=== PATIENT | male | born 1960 | race Caucasian/White ===

== ENCOUNTER 2021-01-18 04:26 | Observation (INO) ==
[2021-01-18] MEDS ORDERED: Naloxone 0.4 MG/ML INJ IVP PRN (10:41)
[2021-01-18] MEDS ORDERED: *HR* HYDROcodone/Acet 5/325 mg TABLET PO PRN (10:46)
[2021-01-18] MEDS ORDERED: Ondansetron 4 MG/2 ML VIAL IVP PRN (10:46)
[2021-01-18] MEDS ORDERED: *HR* LORazepam 2 MG/ML VIAL IVP PRN ×3 (10:50→10:51)
[2021-01-18 11:42] LABS: Hematocrit 49.3 % (37.5-50.1); Hemoglobin 16.4 g/dL (12.9-16.9); Mean Corpuscular HGB Conc 33.3 g/dL (31.6-35.5); Mean Corpuscular Hemoglobin 32.7 pg (28.0-33.3); Mean Corpuscular Volume 98.2 fL (83.0-100.0); Platelet Count 226 K/mcL (140-400); Red Blood Count 5.02 M/mcL (4.19-5.50); Red Cell Distribution Width 13.9 % (11.5-14.5); White Blood Count 11.2 K/mcL (4.3-11.1)
[2021-01-18 11:57] LABS: Prothrombin Time 11.2 Seconds (9.4-12.1)
[2021-01-18 11:59] LABS: Activated Partial Thrombo Time 26.8 Seconds (26.0-36.0)
[2021-01-18 12:04] LABS: Alanine Aminotransferase 36 Units/L (7-52); Albumin 3.7 g/dL (3.5-5.7); Albumin/Globulin Ratio 1.4 (1.1-2.2); Alkaline Phosphatase 95 Units/L (34-104); Amylase 16 Units/L (29-103); Aspartate Amino Transferase 47 Units/L (13-39); BUN/Creatinine Ratio 8 (6-26); Bilirubin,Total 0.7 mg/dL (0.3-1.0); Blood Urea Nitrogen 6 mg/dL (8-23); Calcium 8.7 mg/dL (8.6-10.3); Carbon Dioxide 28 mEq/L (23-29); Chloride 105 mEq/L (98-107); Globulin 2.6 g/dL (2.4-3.5); Glucose 107 mg/dL (70-105); Lipase 6 Units/L (11-82); Magnesium 1.8 mg/dL (1.6-2.6); Osmolality,Calculated 286 (280-300); Phosphorous 3.4 mg/dL (2.7-4.5); Potassium 4.5 mEq/L (3.5-5.1); Sodium 139 mEq/L (136-145); Total Protein 6.3 g/dL (6.4-8.9); Troponin I < 0.03 ng/mL (< 0.04); eGFR For African Americans > 60 (> 60); eGFR For Non-African Americans > 60 (> 60)
[2021-01-18] MEDS: D5% in 0.45% NACL 1,000 ML IVC SCH ×2 (12:13→23:55)
[2021-01-18] MEDS: Pantoprazole 40 MG VIAL IVP SCH (12:14)
[2021-01-18] MEDS ORDERED: Ipratropium/Albuterol Neb 3 ML IH PRN (13:16)
[2021-01-18] MEDS: *HR* Heparin 5,000 UNIT/ML VIAL SQ SCH (17:56)
[2021-01-19] MEDS ORDERED: lisinopriL 20 MG TABLET PO SCH (05:45)
[2021-01-19] MEDS: *HR* Heparin 5,000 UNIT/ML VIAL SQ SCH (05:57)
[2021-01-19 07:27] VITALS: BP 169/91
[2021-01-19] MEDS ORDERED: Folic Acid 1 MG TABLET PO SCH (09:00)
[2021-01-19] MEDS ORDERED: Vitamin B Complex/Vit C/Vit E 1 EACH TABLET PO SCH (09:00)
[2021-01-19] MEDS ORDERED: Thiamine (B-1) 100 MG TABLET PO SCH (09:00)
[2021-01-19] MEDS: Pantoprazole 40 MG VIAL IVP SCH (09:15)
== END 2021-01-19 11:48 | disposition home or self-care (01) ==
LOC: 3ANU
PROVIDERS: ADMIT Internal Medicine; ATTEND Internal Medicine

== ENCOUNTER 2021-10-27 12:31 | Observation (INO) ==
[2021-10-27] MEDS ORDERED: Naloxone 0.4 MG/ML INJ IVP PRN (15:40)
[2021-10-27] MEDS ORDERED: *HR* OxyCODONE Immed Rel 5 MG TABLET PO PRN ×2 (15:44)
[2021-10-27] MEDS ORDERED: Morphine Sulfate 2 MG/ML SYRINGE IVP PRN (15:44)
[2021-10-27] MEDS ORDERED: Acetaminophen 325 MG TABLET PO PRN (15:44)
[2021-10-27 17:32] LABS: Basophils % 0.5 %; Eosinophils # 0.1 K/mcL (0.0-0.6); Eosinophils % 0.8 %; Hematocrit 44.1 % (37.5-50.1); Hemoglobin 14.8 g/dL (12.9-16.9); Immature Granulocytes % 0.6 % (0-4); Lymphocytes # 1.6 K/mcL (0.6-4.6); Lymphocytes % 19.9 %; Mean Corpuscular HGB Conc 33.6 g/dL (31.6-35.5); Mean Corpuscular Volume 98.4 fL (83.0-100.0); Mean Platelet Volume 8.4 fL (9.4-12.4); Monocytes # 1.1 K/mcL (0.0-1.3); Monocytes % 13.7 %; Neutrophils # 5.1 K/mcL (1.6-8.9); Platelet Count 295 K/mcL (140-400); Red Blood Count 4.48 M/mcL (4.19-5.50); Red Cell Distribution Width 15.6 % (11.5-14.5); Segmented Neutrophils % 64.5 %; White Blood Count 7.9 K/mcL (4.3-11.1)
[2021-10-27 17:37] LABS: INR 1.5; Prothrombin Time 16.4 Seconds (9.4-12.1)
[2021-10-27 17:46] LABS: BUN/Creatinine Ratio 6 (6-26); Blood Urea Nitrogen 4 mg/dL (8-23); Calcium 8.6 mg/dL (8.6-10.3); Carbon Dioxide 31 mEq/L (23-29); Chloride 102 mEq/L (98-107); Glucose 97 mg/dL (70-105); Osmolality,Calculated 281 (280-300); Sodium 137 mEq/L (136-145); eGFR For African Americans > 60 (> 60); eGFR For Non-African Americans > 60 (> 60)
[2021-10-27] MEDS: *HR* Heparin 5,000 UNIT/ML VIAL SQ SCH (18:07)
[2021-10-27] MEDS: Piperacillin/Tazobactam 3.375 GM in 0.9 % Sodium Chloride Mini Bag 100 ML IVPB SCH (21:06)
[2021-10-27] MEDS: Clindamycin 600 MG/50 ML 600 MG/50 ML IV.SOLN IVPB SCH (21:06)
[2021-10-27] MEDS: Vancomycin 1,250 MG/262.5 ML IV.SOLN IVPB SCH (22:12)
[2021-10-28] MEDS: D5% in 0.45% NACL w KCl 20 MEQ/1,000 ML MLS IVC SCH ×2 (01:13→13:42)
[2021-10-28] MEDS: Piperacillin/Tazobactam 3.375 GM in 0.9 % Sodium Chloride Mini Bag 100 ML IVPB SCH ×2 (03:05→11:47)
[2021-10-28] MEDS: Clindamycin 600 MG/50 ML 600 MG/50 ML IV.SOLN IVPB SCH ×2 (03:05→11:47)
[2021-10-28 05:28] LABS: Basophils % 0.5 %; Eosinophils # 0.1 K/mcL (0.0-0.6); Eosinophils % 1.7 %; Hematocrit 44.1 % (37.5-50.1); Immature Granulocytes % 0.8 % (0-4); Lymphocytes # 1.4 K/mcL (0.6-4.6); Lymphocytes % 21.7 %; Mean Corpuscular HGB Conc 31.7 g/dL (31.6-35.5); Mean Corpuscular Hemoglobin 31.3 pg (28.0-33.3); Mean Corpuscular Volume 98.4 fL (83.0-100.0); Mean Platelet Volume 8.5 fL (9.4-12.4); Monocytes # 0.9 K/mcL (0.0-1.3); Monocytes % 13.5 %; Platelet Count 290 K/mcL (140-400); Red Blood Count 4.48 M/mcL (4.19-5.50); Red Cell Distribution Width 15.6 % (11.5-14.5); Segmented Neutrophils % 61.8 %; White Blood Count 6.5 K/mcL (4.3-11.1)
[2021-10-28] MEDS: *HR* Heparin 5,000 UNIT/ML VIAL SQ SCH (05:30)
[2021-10-28 05:51] LABS: BUN/Creatinine Ratio 9 (6-26); Blood Urea Nitrogen 6 mg/dL (8-23); Calcium 8.1 mg/dL (8.6-10.3); Carbon Dioxide 25 mEq/L (23-29); Chloride 104 mEq/L (98-107); Glucose 99 mg/dL (70-105); Osmolality,Calculated 276 (280-300); Potassium 3.8 mEq/L (3.5-5.1); Sodium 134 mEq/L (136-145); eGFR For African Americans > 60 (> 60); eGFR For Non-African Americans > 60 (> 60)
[2021-10-28] MEDS: Vancomycin 1,250 MG/262.5 ML IV.SOLN IVPB SCH (07:40)
[2021-10-28] MEDS ORDERED: Folic Acid 1 MG TABLET PO SCH (09:00)
[2021-10-28] MEDS ORDERED: Thiamine (B-1) 100 MG TABLET PO SCH (09:00)
[2021-10-28] MEDS ORDERED: *HR* Midazolam HCl 2 MG/2 ML VIAL ONE (10:31)
[2021-10-28] MEDS ORDERED: *HR* FentaNYL (PF) 100 MCG/2 ML VIAL ONE ×2 (10:31→11:58)
[2021-10-28] MEDS ORDERED: *HR* Propofol 200 MG/20 ML VIAL IVP ONE ×2 (10:32→11:57)
[2021-10-28] MEDS ORDERED: Ipratropium/Albuterol Neb 3 ML IH ONE ×2 (11:03→13:22)
[2021-10-28] MEDS ORDERED: Ondansetron 4 MG/2 ML VIAL IVP PRN (11:04)
[2021-10-28] MEDS ORDERED: *HR* OxyCODONE Immed Rel 5 MG TABLET PO PRN ×3 (11:04→13:22)
[2021-10-28] MEDS ORDERED: Acetaminophen IV 1,000 MG/100 ML BAG IVPB PRN (11:04)
[2021-10-28] MEDS ORDERED: *HR* Midazolam HCl 2 MG/2 ML VIAL IVP PRN (11:04)
[2021-10-28] MEDS ORDERED: Vancomycin 1,000 MG VIAL ONE (11:45)
[2021-10-28] MEDS ORDERED: Ondansetron 4 MG/2 ML VIAL ONE (11:51)
[2021-10-28] MEDS ORDERED: Albuterol 2.5 MG/3 ML NEBULIZER IH ONE ×2 (12:06→13:22)
[2021-10-28] MEDS: *HR* HYDROmorphone PF 0.5 MG/0.5 ML SYRINGE IVP PRN ×2 (12:40→12:55)
[2021-10-28] MEDS ORDERED: Naloxone 0.4 MG/ML INJ IVP PRN (13:22)
[2021-10-28] MEDS ORDERED: Acetaminophen 325 MG TABLET PO PRN (13:22)
[2021-10-28] MEDS ORDERED: Morphine Sulfate 2 MG/ML SYRINGE IVP PRN (13:22)
[2021-10-28] MEDS ORDERED: D5% in 0.45% NACL w KCl 20 MEQ/1,000 ML MLS IVC SCH (13:22)
[2021-10-28] MEDS ORDERED: Fluticasone Propionate Nasal 50 MCG/SPRAY BOTTLE NS PRN (13:22)
[2021-10-28] MEDS ORDERED: Famotidine 20 MG TABLET PO PRN (13:22)
[2021-10-28 13:36] VITALS: TEMP 97.8
[2021-10-28 16:53] VITALS: BP 122/73; PULSE 88; O2SAT 92
[2021-10-28] MEDS ORDERED: Doxycycline 100 MG CAPSULE PO ONE (17:11)
[2021-10-28] MEDS ORDERED: *HR* Heparin 5,000 UNIT/ML VIAL SQ SCH (18:00)
[2021-10-28] MEDS ORDERED: *HR* Rivaroxaban 10 MG TABLET PO SCH ×2 (18:00)
[2021-10-28] MEDS ORDERED: *HR* Rivaroxaban 15 MG TABLET PO SCH (18:00)
[2021-10-28] MEDS ORDERED: Piperacillin/Tazobactam 3.375 GM in 0.9 % Sodium Chloride Mini Bag 100 ML IVPB SCH (19:00)
[2021-10-28] MEDS ORDERED: Clindamycin 600 MG/50 ML 600 MG/50 ML IV.SOLN IVPB SCH (19:00)
[2021-10-28] MEDS ORDERED: Vancomycin 1,250 MG/262.5 ML IV.SOLN IVPB SCH (20:00)
[2021-10-29] MEDS ORDERED: Aspirin Enteric Coated 81 MG Tablet PO SCH (09:00)
[2021-10-29] MEDS ORDERED: Thiamine (B-1) 100 MG TABLET PO SCH (09:00)
[2021-10-29] MEDS ORDERED: Folic Acid 1 MG TABLET PO SCH (09:00)
[2021-10-29] MEDS ORDERED: lisinopriL 20 MG TABLET PO SCH (09:00)
[2021-10-29] MEDS ORDERED: Loratadine 10 MG TABLET PO SCH (09:00)
== END 2021-10-28 18:31 | disposition home or self-care (01) ==
LOC: 4WAOSI → SUATTDRO 13:59 → EDSTATUS 10-28 12:00
PROVIDERS: ADMIT Student in an Organized Health Care Education/Training Program; ATTEND Internal Medicine

== ENCOUNTER 2022-04-19 10:10 | Inpatient (IN) ==
[2022-04-19 11:48] LABS: Eosinophils % 0.8 %; Hemoglobin 19.5 g/dL (12.9-16.9); Immature Granulocytes % 0.7 % (0-4); Mean Corpuscular HGB Conc 34.2 g/dL (31.6-35.5); Mean Corpuscular Hemoglobin 32.8 pg (28.0-33.3); Mean Corpuscular Volume 96.1 fL (83.0-100.0); Mean Platelet Volume 8.8 fL (9.4-12.4); Platelet Count 235 K/mcL (140-400); Red Blood Count 5.94 M/mcL (4.19-5.50); Red Cell Distribution Width 16.8 % (11.5-14.5); Segmented Neutrophils % 69.5 %; White Blood Count 10.8 K/mcL (4.3-11.1)
[2022-04-19 11:49] LABS: Basophils # 0.1 K/mcL (0.0-0.2); Eosinophils # 0.1 K/mcL (0.0-0.6); Lymphocytes # 1.7 K/mcL (0.6-4.6); Monocytes # 1.3 K/mcL (0.0-1.3); Neutrophils # 7.5 K/mcL (1.6-8.9)
[2022-04-19 11:50] LABS: Hematocrit 57.1 % (37.5-50.1)
[2022-04-19 12:19] LABS: BUN/Creatinine Ratio 12 (6-26); Blood Urea Nitrogen 8 mg/dL (8-23); C-Reactive Protein 7 mg/L (Less than 10); Calcium 9.1 mg/dL (8.6-10.3); Carbon Dioxide 26 mEq/L (23-29); Chloride 95 mEq/L (98-107); Glucose 105 mg/dL (70-105); Osmolality,Calculated 269 (280-300); Potassium 4.6 mEq/L (3.5-5.1); Sodium 130 mEq/L (136-145); eGFR For African Americans > 60 (> 60); eGFR For Non-African Americans > 60 (> 60)
[2022-04-19] MEDS ORDERED: Piperacillin/Tazobactam 3.375 GM in 0.9 % Sodium Chloride Mini Bag 100 ML IVPB ONE (12:30)
[2022-04-19] MEDS ORDERED: Vancomycin 1,250 MG/262.5 ML IV.SOLN IVPB ONE (13:00)
[2022-04-19] MEDS ORDERED: Acetaminophen 325 MG TABLET PO PRN (13:32)
[2022-04-19] MEDS ORDERED: Ondansetron 4 MG/2 ML VIAL IVP PRN (13:32)
[2022-04-19] MEDS ORDERED: Naloxone 0.4 MG/ML INJ IVP PRN (13:32)
[2022-04-19] MEDS ORDERED: *HR* Dextrose 50 % in Water (Syg) 50 ML SYRINGE IVP PRN (13:45)
[2022-04-19] MEDS ORDERED: D5% in Water 1,000 ML IVC PRN (13:45)
[2022-04-19] MEDS ORDERED: Dextrose Gel 15 GM/37.5 ML TUBE PO PRN ×2 (13:45)
[2022-04-19] MEDS ORDERED: Ipratropium/Albuterol Neb 3 ML IH PRN (13:47)
[2022-04-19 14:33] LABS: Troponin I < 0.03 ng/mL (< 0.04)
[2022-04-19 14:55] LABS: Estimated Average Glucose 111 mg/dl; Hemoglobin A1C 5.5 %
[2022-04-19] MEDS: *HR* Heparin 5,000 UNIT/ML VIAL SQ SCH ×2 (15:31→21:02)
[2022-04-19] MEDS: Insulin LISPRO 300 UNITS/3 ML VIAL SUBQ SCH (17:04)
[2022-04-19] MEDS: *HR* HYDROcodone/Acet 5/325 mg TABLET PO PRN (18:36)
[2022-04-19] MEDS ORDERED: Insulin LISPRO 300 UNITS/3 ML VIAL SUBQ SCH (21:00)
[2022-04-19] MEDS: Piperacillin/Tazobactam 3.375 GM in 0.9 % Sodium Chloride Mini Bag 100 ML IVPB SCH (21:02)
[2022-04-20] MEDS: Vancomycin 1,250 MG/262.5 ML IV.SOLN IVPB SCH ×2 (01:41→13:56)
[2022-04-20 04:55] LABS: Basophils # 0.1 K/mcL (0.0-0.2); Basophils % 0.7 %; Eosinophils # 0.1 K/mcL (0.0-0.6); Hematocrit 54.6 % (37.5-50.1); Hemoglobin 18.3 g/dL (12.9-16.9); Immature Granulocytes % 0.7 % (0-4); Lymphocytes # 1.9 K/mcL (0.6-4.6); Lymphocytes % 19.4 %; Mean Corpuscular HGB Conc 33.5 g/dL (31.6-35.5); Mean Corpuscular Hemoglobin 32.8 pg (28.0-33.3); Mean Corpuscular Volume 97.8 fL (83.0-100.0); Mean Platelet Volume 9.1 fL (9.4-12.4); Monocytes # 1.4 K/mcL (0.0-1.3); Monocytes % 14.6 %; Neutrophils # 6.1 K/mcL (1.6-8.9); Platelet Count 212 K/mcL (140-400); Red Blood Count 5.58 M/mcL (4.19-5.50); Red Cell Distribution Width 16.1 % (11.5-14.5); Segmented Neutrophils % 63.6 %; White Blood Count 9.7 K/mcL (4.3-11.1)
[2022-04-20 05:25] LABS: BUN/Creatinine Ratio 12 (6-26); Blood Urea Nitrogen 9 mg/dL (8-23); Calcium 8.5 mg/dL (8.6-10.3); Carbon Dioxide 26 mEq/L (23-29); Chloride 102 mEq/L (98-107); Glucose 102 mg/dL (70-105); Osmolality,Calculated 279 (280-300); Potassium 4.5 mEq/L (3.5-5.1); Sodium 135 mEq/L (136-145); eGFR For African Americans > 60 (> 60); eGFR For Non-African Americans > 60 (> 60)
[2022-04-20] MEDS: *HR* Heparin 5,000 UNIT/ML VIAL SQ SCH (05:25)
[2022-04-20] MEDS: Piperacillin/Tazobactam 3.375 GM in 0.9 % Sodium Chloride Mini Bag 100 ML IVPB SCH ×3 (05:25→20:58)
[2022-04-20] MEDS: Insulin LISPRO 300 UNITS/3 ML VIAL SUBQ SCH ×2 (08:28→11:55)
[2022-04-20] MEDS ORDERED: Famotidine 20 MG TABLET PO PRN (08:37)
[2022-04-20] MEDS: Loratadine 10 MG TABLET PO SCH (09:23)
[2022-04-20] MEDS: Aspirin Enteric Coated 81 MG Tablet PO SCH (09:23)
[2022-04-20] MEDS: lisinopriL 20 MG TABLET PO SCH (09:23)
[2022-04-20] MEDS: Nicotine 21 MG PATCH.TD24 TD SCH (12:15)
[2022-04-20] MEDS: *HR* Enoxaparin 100 MG/ML SYRINGE SQ SCH (18:10)
[2022-04-20] MEDS: *HR* OxyCODONE Immed Rel 5 MG TABLET PO PRN (21:05)
[2022-04-21 00:38] LABS: Hematocrit 52.3 % (37.5-50.1); Hemoglobin 17.9 g/dL (12.9-16.9); Mean Corpuscular HGB Conc 34.2 g/dL (31.6-35.5); Mean Corpuscular Volume 96.5 fL (83.0-100.0); Mean Platelet Volume 9.1 fL (9.4-12.4); Platelet Count 212 K/mcL (140-400); Red Blood Count 5.42 M/mcL (4.19-5.50); Red Cell Distribution Width 16.2 % (11.5-14.5); White Blood Count 8.2 K/mcL (4.3-11.1)
[2022-04-21 00:45] LABS: BUN/Creatinine Ratio 12 (6-26); Blood Urea Nitrogen 8 mg/dL (8-23); Calcium 8.5 mg/dL (8.6-10.3); Carbon Dioxide 25 mEq/L (23-29); Chloride 105 mEq/L (98-107); Glucose 98 mg/dL (70-105); Osmolality,Calculated 280 (280-300); Potassium 3.6 mEq/L (3.5-5.1); Sodium 136 mEq/L (136-145); eGFR For African Americans > 60 (> 60); eGFR For Non-African Americans > 60 (> 60)
[2022-04-21] MEDS: Vancomycin 1,500 MG/265 ML IV.SOLN IVPB SCH ×2 (01:21→15:30)
[2022-04-21] MEDS: *HR* Enoxaparin 100 MG/ML SYRINGE SQ SCH ×2 (05:05→18:40)
[2022-04-21] MEDS: Piperacillin/Tazobactam 3.375 GM in 0.9 % Sodium Chloride Mini Bag 100 ML IVPB SCH ×2 (05:06→18:41)
[2022-04-21 07:46] LABS: A.calcoaceticus-baumannii cplx Not Detected (Not Detect); Bacteroides fragilis by PCR Not Detected (Not Detect); Candida albicans by PCR Not Detected (Not Detect); Candida auris by PCR Not Detected (Not Detect); Candida glabrata by PCR Not Detected (Not Detect); Candida krusei by PCR Not Detected (Not Detect); Candida parapsilosis by PCR Not Detected (Not Detect); Candida tropicalis by PCR Not Detected (Not Detect); Crypto. neoformans/gattii PCR Not Detected (Not Detect); Enterobacter cloacae Cmplx PCR Not Detected (Not Detect); Enterobacterales by PCR Not Detected (Not Detect); Enterococcus faecalis by PCR Not Detected (Not Detect); Enterococcus faecium by PCR Not Detected (Not Detect); Escherichia coli by PCR Not Detected (Not Detect); Klebs. pneumoniae group by PCR Not Detected (Not Detect); Klebsiella aerogenes by PCR Not Detected (Not Detect); Klebsiella oxytoca by PCR Not Detected (Not Detect); Proteus by PCR Not Detected (Not Detect); Pseudomonas aeruginosa by PCR Not Detected (Not Detect); Salmonella species by PCR Not Detected (Not Detect); Serratia marcescens by PCR Not Detected (Not Detect); Staph epidermidis by PCR Not Detected (Not Detect); Staph lugdunensis by PCR Not Detected (Not Detect); Staphylococcus aureus by PCR Not Detected (Not Detect); Staphylococcus by PCR DETECTED (Not Detect); Stenotrophomonas maltophilia Not Detected (Not Detect); Streptococcus agalactiae(B)PCR Not Detected (Not Detect); Streptococcus by PCR Not Detected (Not Detect); Streptococcus pneumoniae PCR Not Detected (Not Detect); Streptococcus pyogenes (A) PCR Not Detected (Not Detect)
[2022-04-21] MEDS: Loratadine 10 MG TABLET PO SCH (09:50)
[2022-04-21] MEDS: Aspirin Enteric Coated 81 MG Tablet PO SCH (09:50)
[2022-04-21] MEDS: lisinopriL 20 MG TABLET PO SCH (09:50)
[2022-04-21] MEDS ORDERED: Famotidine 20 MG/2 ML VIAL IVP ONE (12:33)
[2022-04-21] MEDS ORDERED: Acetaminophen IV 1,000 MG/100 ML BAG IVPB ONE (12:33)
[2022-04-21] MEDS ORDERED: Lidocaine -MPF 2% 5 ML VIAL ONE (12:39)
[2022-04-21] MEDS ORDERED: Ondansetron 4 MG/2 ML VIAL ONE (12:39)
[2022-04-21] MEDS ORDERED: *HR* Propofol 200 MG/20 ML VIAL IVP ONE ×2 (12:40→13:33)
[2022-04-21] MEDS ORDERED: *HR* FentaNYL (PF) 100 MCG/2 ML VIAL ONE (12:40)
[2022-04-21] MEDS ORDERED: *HR* Succinylcholine 200 MG/10 ML VIAL IVP ONE (13:07)
[2022-04-21] MEDS ORDERED: Lidocaine HCL 4 ML Topical Solution (Laryng-O-Jet Kit Sterile Pak) TP ONE (13:08)
[2022-04-21] MEDS: *HR* HYDROcodone/Acet 5/325 mg TABLET PO PRN (15:23)
[2022-04-21] MEDS: Nicotine 21 MG PATCH.TD24 TD SCH (19:35)
[2022-04-22] MEDS: *HR* OxyCODONE Immed Rel 5 MG TABLET PO PRN ×2 (00:05→23:05)
[2022-04-22] MEDS: Piperacillin/Tazobactam 3.375 GM in 0.9 % Sodium Chloride Mini Bag 100 ML IVPB SCH ×2 (02:14→09:46)
[2022-04-22] MEDS: *HR* Enoxaparin 100 MG/ML SYRINGE SQ SCH ×2 (06:51→17:09)
[2022-04-22] MEDS: lisinopriL 20 MG TABLET PO SCH (09:46)
[2022-04-22] MEDS: Nicotine 21 MG PATCH.TD24 TD SCH (09:46)
[2022-04-22] MEDS: Loratadine 10 MG TABLET PO SCH (09:46)
[2022-04-22] MEDS: Aspirin Enteric Coated 81 MG Tablet PO SCH (09:46)
[2022-04-22] MEDS ORDERED: Nicotine 2 MG GUM BC PRN (13:01)
[2022-04-22] MEDS: *HR* HYDROcodone/Acet 5/325 mg TABLET PO PRN (13:49)
[2022-04-22] MEDS: Cefepime HCl 2,000 MG in 0.9 % Sodium Chloride Mini Bag 100 ML IVPB SCH (17:09)
[2022-04-23] MEDS: Cefepime HCl 2,000 MG in 0.9 % Sodium Chloride Mini Bag 100 ML IVPB SCH ×2 (07:00→17:08)
[2022-04-23] MEDS: *HR* Enoxaparin 100 MG/ML SYRINGE SQ SCH (07:01)
[2022-04-23 09:13] LABS: Hematocrit 52.6 % (37.5-50.1); Hemoglobin 17.1 g/dL (12.9-16.9); Mean Corpuscular HGB Conc 32.5 g/dL (31.6-35.5); Mean Corpuscular Hemoglobin 32.8 pg (28.0-33.3); Mean Corpuscular Volume 100.8 fL (83.0-100.0); Mean Platelet Volume 9.2 fL (9.4-12.4); Platelet Count 212 K/mcL (140-400); Red Blood Count 5.22 M/mcL (4.19-5.50); Red Cell Distribution Width 16.3 % (11.5-14.5); White Blood Count 8.4 K/mcL (4.3-11.1)
[2022-04-23] MEDS: Aspirin Enteric Coated 81 MG Tablet PO SCH (09:17)
[2022-04-23] MEDS: lisinopriL 20 MG TABLET PO SCH (09:17)
[2022-04-23] MEDS: Loratadine 10 MG TABLET PO SCH (09:17)
[2022-04-23 09:28] LABS: BUN/Creatinine Ratio 8 (6-26); Blood Urea Nitrogen 8 mg/dL (8-23); Calcium 8.7 mg/dL (8.6-10.3); Carbon Dioxide 31 mEq/L (23-29); Chloride 108 mEq/L (98-107); Glucose 92 mg/dL (70-105); Osmolality,Calculated 294 (280-300); Potassium 3.4 mEq/L (3.5-5.1); Sodium 143 mEq/L (136-145); eGFR For African Americans > 60 (> 60); eGFR For Non-African Americans > 60 (> 60)
[2022-04-23] MEDS: Nicotine 2 MG GUM BC SCH ×7 (12:18→23:24)
[2022-04-23] MEDS: *HR* HYDROcodone/Acet 5/325 mg TABLET PO PRN (15:40)
[2022-04-23] MEDS: *HR* Rivaroxaban 10 MG TABLET PO SCH (17:08)
[2022-04-24] MEDS: Nicotine 2 MG GUM BC SCH ×8 (01:46→17:17)
[2022-04-24 02:08] LABS: BUN/Creatinine Ratio 11 (6-26); Blood Urea Nitrogen 11 mg/dL (8-23); C-Reactive Protein 18 mg/L (Less than 10); Calcium 8.3 mg/dL (8.6-10.3); Carbon Dioxide 28 mEq/L (23-29); Chloride 108 mEq/L (98-107); Glucose 100 mg/dL (70-105); Osmolality,Calculated 293 (280-300); Potassium 3.3 mEq/L (3.5-5.1); Sodium 142 mEq/L (136-145); eGFR For African Americans > 60 (> 60); eGFR For Non-African Americans > 60 (> 60)
[2022-04-24] MEDS: Cefepime HCl 2,000 MG in 0.9 % Sodium Chloride Mini Bag 100 ML IVPB SCH ×2 (05:57→17:18)
[2022-04-24] MEDS: *HR* HYDROcodone/Acet 5/325 mg TABLET PO PRN ×2 (05:57→17:18)
[2022-04-24] MEDS: lisinopriL 20 MG TABLET PO SCH (09:47)
[2022-04-24] MEDS: Loratadine 10 MG TABLET PO SCH (09:47)
[2022-04-24] MEDS: Aspirin Enteric Coated 81 MG Tablet PO SCH (09:47)
[2022-04-24] MEDS: *HR* Rivaroxaban 10 MG TABLET PO SCH (17:18)
[2022-04-24] MEDS: *HR* OxyCODONE Immed Rel 5 MG TABLET PO PRN (22:01)
[2022-04-25] MEDS: Nicotine 2 MG GUM BC SCH ×7 (03:14→17:19)
[2022-04-25 04:40] LABS: Hematocrit 48.2 % (37.5-50.1); Hemoglobin 15.9 g/dL (12.9-16.9); Mean Platelet Volume 9.4 fL (9.4-12.4); Platelet Count 194 K/mcL (140-400); Red Blood Count 4.82 M/mcL (4.19-5.50); Red Cell Distribution Width 15.7 % (11.5-14.5); White Blood Count 9.8 K/mcL (4.3-11.1)
[2022-04-25 04:58] LABS: BUN/Creatinine Ratio 10 (6-26); Blood Urea Nitrogen 10 mg/dL (8-23); Calcium 7.9 mg/dL (8.6-10.3); Carbon Dioxide 30 mEq/L (23-29); Chloride 105 mEq/L (98-107); Glucose 133 mg/dL (70-105); Osmolality,Calculated 293 (280-300); Potassium 2.9 mEq/L (3.5-5.1); Sodium 141 mEq/L (136-145); eGFR For African Americans > 60 (> 60); eGFR For Non-African Americans > 60 (> 60)
[2022-04-25] MEDS: Cefepime HCl 2,000 MG in 0.9 % Sodium Chloride Mini Bag 100 ML IVPB SCH (06:00)
[2022-04-25] MEDS: lisinopriL 20 MG TABLET PO SCH (08:01)
[2022-04-25] MEDS: Loratadine 10 MG TABLET PO SCH (08:01)
[2022-04-25] MEDS: Aspirin Enteric Coated 81 MG Tablet PO SCH (08:01)
[2022-04-25] MEDS: *HR* HYDROcodone/Acet 5/325 mg TABLET PO PRN ×2 (13:42→20:21)
[2022-04-25] MEDS ORDERED: Cefepime HCl 2,000 MG in 0.9 % Sodium Chloride Mini Bag 100 ML IVPB SCH (14:00)
[2022-04-25] MEDS: levoFLOXacin 750 MG TABLET PO SCH (17:19)
[2022-04-25] MEDS: *HR* Rivaroxaban 10 MG TABLET PO SCH (17:19)
[2022-04-26] MEDS: *HR* OxyCODONE Immed Rel 5 MG TABLET PO PRN (03:38)
[2022-04-26] MEDS: Nicotine 2 MG GUM BC SCH ×4 (05:21→11:16)
[2022-04-26] MEDS: Aspirin Enteric Coated 81 MG Tablet PO SCH (07:53)
[2022-04-26] MEDS: lisinopriL 20 MG TABLET PO SCH (07:53)
[2022-04-26] MEDS: Loratadine 10 MG TABLET PO SCH (07:53)
[2022-04-26] MEDS: levoFLOXacin 750 MG TABLET PO SCH (07:53)
[2022-04-26] MEDS ORDERED: Oxymetazoline Nasal SPRAY BOTTLE 15ML NS SCH (09:00)
[2022-04-26 12:17] VITALS: BP 153/98; PULSE 99; TEMP 98; O2SAT 95
[2022-04-26] MEDS: *HR* HYDROcodone/Acet 5/325 mg TABLET PO PRN (14:08)
== END 2022-04-26 14:18 | disposition home or self-care (01) | DRG 982 ==
LOC: EMEROOARM 10:10 → 3ANU 10:10 → SUATTDRO 13:37 → 3ANU 14:11
PROVIDERS: ADMIT General Practice; ATTEND Internal Medicine